=== PATIENT | male | born 1960 | race Caucasian/White ===

== ENCOUNTER 2019-04-01 23:52 | Emergency (ER) | payer SELFPAY ==
[~2019-04-01] VITALS: Ht 177.8 cm; Wt 86.2 kg
[2019-04-02 00:01] VITALS: Ht 177.8 cm; Wt 86.2 kg
[2019-04-02 01:41] VITALS: BP 121/76
== END 2019-04-02 01:42 | disposition home or self-care (01) ==
LOC: ED 23:52
DX: G43.909 Migraine, unspecified, not intractable, without status migrainosus (principal); Z88.0 Allergy status to penicillin